=== PATIENT | female | born 1945 | race Caucasian/White ===

== ENCOUNTER 2017-08-09 11:35 | Inpatient (IN) | payer MEDICARE, MEDICAID ==
[~2017-08-09] VITALS: Ht 160 cm; Wt 74.6 kg
[2017-08-09 11:39] VITALS: BP 150/89
[2017-08-09] MEDS ORDERED: HALOPERIDOL 5 MG TABLET PO PRN (12:30)
[2017-08-09] MEDS ORDERED: INFLUENZA VIRUS VACCINE QVS 2017-18 (3YR+)/PF 60 MCG/0.5 ML SYRINGE IM ONE (12:30)
[2017-08-09] MEDS ORDERED: LORazepam 1 MG TABLET PO PRN (12:30)
[2017-08-09] MEDS ORDERED: LORA10TA7 PO (13:18)
[2017-08-09] MEDS ORDERED: SIMV-259 PO (13:18)
[2017-08-09] MEDS ORDERED: ALEN70TA48 PO (13:18)
[2017-08-09] MEDS ORDERED: IBUP-2070 PO (13:18)
[2017-08-09] MEDS ORDERED: MULT-248 PO (13:18)
[2017-08-09] MEDS ORDERED: SITA50 PO (13:18)
[2017-08-09] MEDS ORDERED: TRAM50TA4 PO (13:18)
[2017-08-09] MEDS ORDERED: ALBU8HFA4 IH (13:18)
[2017-08-09] MEDS ORDERED: INSU100V12 SQ (13:24)
[2017-08-09] MEDS ORDERED: INSNOV SQ (13:26)
[2017-08-09 14:11] VITALS: BP 185/78
[2017-08-09 14:13] LABS: GLUCOMETER DEV NAME(LOC) BV3S 2; GLUCOSE,POINT OF CARE 134 MG/DL (70-110)
[2017-08-09] MEDS ORDERED: GLUCAGON,HUMAN RECOMBINANT 1 MG VIAL IM PRN (14:15)
[2017-08-09] MEDS ORDERED: ALBUTEROL SULFATE HFA 90 MCG/PUFF 8 GM INHALER IH PRN (16:00)
[2017-08-09] MEDS ORDERED: IBUPROFEN 400 MG TABLET PO PRN (16:00)
[2017-08-09] MEDS ORDERED: ACETAMINOPHEN 325 MG TABLET PO PRN (16:00)
[2017-08-09] MEDS ORDERED: CloNIDine HCL 0.1 MG TABLET PO PRN (16:00)
[2017-08-09 16:05] VITALS: BP 138/82
[2017-08-09 16:43] LABS: GLUCOMETER DEV NAME(LOC) BV3S 2; GLUCOSE,POINT OF CARE 210 MG/DL (70-110)
[2017-08-09] MEDS: INSULIN DETEMIR 100 UNITS/ML SQ SCH (18:54)
[2017-08-09 20:11] LABS: GLUCOMETER DEV NAME(LOC) BV3S 2; GLUCOSE,POINT OF CARE 240 MG/DL (70-110)
[2017-08-10] MEDS ORDERED: ALENDRONATE SODIUM 70 MG TABLET PO SCH (06:30)
[2017-08-10] MEDS: ZIPRASIDONE HCL 40 MG CAPSULE PO SCH ×2 (06:43→16:35)
[2017-08-10 06:44] LABS: GLUCOMETER DEV NAME(LOC) BV3S 2; GLUCOSE,POINT OF CARE 116 MG/DL (70-110)
[2017-08-10 08:01] VITALS: BP 139/72
[2017-08-10] MEDS: MULTIVITAMINS WITH MINERALS, THERAPEUTIC TABLET PO SCH (08:23)
[2017-08-10] MEDS: LORATADINE 10 MG TABLET PO SCH (08:23)
[2017-08-10 08:27] LABS: HEMOGLOBIN A1C 6.5 % (4.5-6.2)
[2017-08-10] MEDS: SitaGLIPtin PHOSPHATE 50 MG TABLET PO SCH (08:29)
[2017-08-10] MEDS: AmLODIPine BESYLATE 5 MG TABLET PO SCH (08:29)
[2017-08-10] MEDS: SIMVASTATIN 10 MG TABLET PO SCH (08:30)
[2017-08-10 08:32] LABS: BASOPHILS % (AUTO) 0.4 % (0.0-2.0); EOSINOPHILS % (AUTO) 3.4 % (1.0-6.0); HEMATOCRIT 38.1 % (36-46); LYMPHOCYTES # (AUTO) 2.5 K/uL (1.0-4.8); LYMPHOCYTES % (AUTO) 32.9 % (22.0-44.0); MEAN CORPUSCULAR HEMOGLOBIN 31.4 pg (26.0-34.0); MEAN CORPUSCULAR HGB CONC 34.2 G/dL (31.0-37.0); MEAN CORPUSCULAR VOLUME 92 fL (80-100); MONOCYTES # (AUTO) 0.6 K/uL (0.1-1.0); MONOCYTES % (AUTO) 7.9 % (2.0-9.0); NEUTROPHILS # (AUTO) 4.1 K/uL (1.8-7.7); NEUTROPHILS % (AUTO) 55.4 % (40.0-70.0); PLATELET COUNT (AUTO) 227 K/uL (150-450); RED BLOOD CELL COUNT(AUTO) 4.15 MIL/uL (4.00-5.20); RED CELL DISTRIBUTION WIDTH 13.2 % (11.5-14.5)
[2017-08-10 10:05] LABS: ALANINE AMINOTRANSFERASE 29 U/L (12-78); ALBUMIN 3.6 g/dL (3.4-5.0); ALKALINE PHOSPHATASE 87 U/L (46-116); ANION GAP 7 mmol/L (8-16); ASPARTATE AMINOTRANSFERASE 27 U/L (15-37); BILIRUBIN,TOTAL 0.4 mg/dL (0.1-1.0); CALCIUM, TOTAL 8.8 mg/dL (8.8-10.5); CARBON DIOXIDE 28 mmol/L (22-29); CHLORIDE 105 mmol/L (98-107); CHOL/HDL RATIO 4.1 (3.9-5.7); CHOLESTEROL 189 mg/dL (131-200); FREE T4 (FREE THYROXINE) 1.09 ng/dL (0.76-1.46); GLOMERULAR FILTR. RATE CALC > 60 mL/min (>60); GLUCOSE,RANDOM 129 mg/dL (70-110); HDL CHOLESTEROL 46 mg/dL (40-60); LDL CHOL (CALC.) 113 mg/dL (0-130); POTASSIUM 3.6 mmol/L (3.5-5.1); SODIUM SERUM 140 mmol/L (136-145); THYROID STIMULATING HORMONE 2.31 uIU/mL (0.36-3.74); TRIGLYCERIDES 152 mg/dL (15-150); UREA NITROGEN, BLOOD 14 mg/dL (7-18)
[2017-08-10 11:58] LABS: GLUCOMETER DEV NAME(LOC) BV3S 2; GLUCOSE,POINT OF CARE 174 MG/DL (70-110)
[2017-08-10 16:21] VITALS: BP 147/76
[2017-08-10 16:52] LABS: GLUCOMETER DEV NAME(LOC) BV3S 2; GLUCOSE,POINT OF CARE 172 MG/DL (70-110)
[2017-08-10] MEDS ORDERED: ZIPRASIDONE MESYLATE 20 MG/VIAL IM PRN (19:15)
[2017-08-10] MEDS: INSULIN DETEMIR 100 UNITS/ML SQ SCH (20:08)
[2017-08-10] MEDS: INSULIN ASPART 100 UNITS/ML SQ PRN (20:10)
[2017-08-10 20:12] LABS: GLUCOMETER DEV NAME(LOC) BV3S 2; GLUCOSE,POINT OF CARE 223 MG/DL (70-110)
[2017-08-11 06:17] LABS: GLUCOMETER DEV NAME(LOC) BV3S 2; GLUCOSE,POINT OF CARE 152 MG/DL (70-110)
[2017-08-11] MEDS: ZIPRASIDONE HCL 40 MG CAPSULE PO SCH ×2 (06:27→18:36)
[2017-08-11] MEDS: INSULIN ASPART 100 UNITS/ML SQ PRN (06:27)
[2017-08-11 06:53] VITALS: BP 129/68
[2017-08-11] MEDS: SIMVASTATIN 10 MG TABLET PO SCH (08:20)
[2017-08-11] MEDS: MULTIVITAMINS WITH MINERALS, THERAPEUTIC TABLET PO SCH (08:20)
[2017-08-11] MEDS: LORATADINE 10 MG TABLET PO SCH (08:20)
[2017-08-11 08:25] VITALS: BP 151/87
[2017-08-11 08:26] VITALS: BP_SYST 118; BP_SYST 151; BP_DIAS 87; BP_DIAS 92
[2017-08-11] MEDS: AmLODIPine BESYLATE 5 MG TABLET PO SCH (08:33)
[2017-08-11] MEDS: SitaGLIPtin PHOSPHATE 50 MG TABLET PO SCH (08:33)
[2017-08-11 12:27] LABS: GLUCOMETER DEV NAME(LOC) BV3S 2; GLUCOSE,POINT OF CARE 223 MG/DL (70-110)
[2017-08-11 16:08] VITALS: BP 150/72
[2017-08-11 17:32] LABS: GLUCOMETER DEV NAME(LOC) BV3S 2; GLUCOSE,POINT OF CARE 136 MG/DL (70-110)
[2017-08-11] MEDS: INSULIN DETEMIR 100 UNITS/ML SQ SCH (20:43)
[2017-08-11 21:46] VITALS: BP 135/63
[2017-08-11 22:23] LABS: GLUCOMETER DEV NAME(LOC) BV3S 2; GLUCOSE,POINT OF CARE 220 MG/DL (70-110)
[2017-08-12 02:54] VITALS: BP 123/71
[2017-08-12] MEDS: ZIPRASIDONE HCL 40 MG CAPSULE PO SCH ×2 (06:32→16:42)
[2017-08-12 08:02] VITALS: BP 119/61
[2017-08-12 08:27] VITALS: BP 119/61
[2017-08-12] MEDS: SitaGLIPtin PHOSPHATE 50 MG TABLET PO SCH (09:00)
[2017-08-12] MEDS: AmLODIPine BESYLATE 5 MG TABLET PO SCH (09:00)
[2017-08-12] MEDS: SIMVASTATIN 10 MG TABLET PO SCH (09:32)
[2017-08-12] MEDS: LORATADINE 10 MG TABLET PO SCH (09:32)
[2017-08-12] MEDS: MULTIVITAMINS WITH MINERALS, THERAPEUTIC TABLET PO SCH (09:32)
[2017-08-12 16:30] VITALS: BP 150/90
[2017-08-12 17:27] LABS: GLUCOMETER DEV NAME(LOC) BV3N5; GLUCOSE,POINT OF CARE 165 MG/DL (70-110)
[2017-08-12 17:30] VITALS: BP 145/89
[2017-08-12] MEDS ORDERED: CloNIDine HCL 0.1 MG TABLET PO PRN (20:15)
[2017-08-12] MEDS: INSULIN DETEMIR 100 UNITS/ML SQ SCH (21:04)
[2017-08-12 21:07] LABS: GLUCOMETER DEV NAME(LOC) BV3S 2; GLUCOSE,POINT OF CARE 110 MG/DL (70-110)
[2017-08-12 21:07] LABS: GLUCOMETER DEV NAME(LOC) BV3S 2; GLUCOSE,POINT OF CARE 232 MG/DL (70-110)
[2017-08-12 21:07] LABS: GLUCOMETER DEV NAME(LOC) BV3S 2; GLUCOSE,POINT OF CARE 247 MG/DL (70-110)
[2017-08-13] MEDS: ZIPRASIDONE HCL 40 MG CAPSULE PO SCH ×2 (06:54→16:33)
[2017-08-13 07:00] VITALS: BP 143/82
[2017-08-13 07:08] LABS: GLUCOMETER DEV NAME(LOC) BV3S 2; GLUCOSE,POINT OF CARE 130 MG/DL (70-110)
[2017-08-13 08:45] VITALS: BP 151/75
[2017-08-13] MEDS: SitaGLIPtin PHOSPHATE 50 MG TABLET PO SCH (09:00)
[2017-08-13] MEDS: LORATADINE 10 MG TABLET PO SCH (09:11)
[2017-08-13] MEDS: MULTIVITAMINS WITH MINERALS, THERAPEUTIC TABLET PO SCH (09:11)
[2017-08-13] MEDS: SIMVASTATIN 10 MG TABLET PO SCH (09:11)
[2017-08-13] MEDS: AmLODIPine BESYLATE 5 MG TABLET PO SCH (09:17)
[2017-08-13 15:23] LABS: GLUCOMETER DEV NAME(LOC) BV3S 2; GLUCOSE,POINT OF CARE 170 MG/DL (70-110)
[2017-08-13 16:04] VITALS: BP 140/99
[2017-08-13 16:48] LABS: GLUCOMETER DEV NAME(LOC) BV3S 2; GLUCOSE,POINT OF CARE 212 MG/DL (70-110)
[2017-08-13] MEDS: INSULIN DETEMIR 100 UNITS/ML SQ SCH (20:00)
[2017-08-13 21:12] LABS: GLUCOMETER DEV NAME(LOC) BV3S 2; GLUCOSE,POINT OF CARE 219 MG/DL (70-110)
[2017-08-14 00:38] VITALS: BP 141/87
[2017-08-14] MEDS: INSULIN ASPART 100 UNITS/ML SQ PRN ×4 (06:36→21:05)
[2017-08-14] MEDS: ZIPRASIDONE HCL 40 MG CAPSULE PO SCH (06:38)
[2017-08-14 06:52] LABS: GLUCOMETER DEV NAME(LOC) BV3S 2; GLUCOSE,POINT OF CARE 147 MG/DL (70-110)
[2017-08-14 08:36] VITALS: BP 129/61
[2017-08-14] MEDS: SIMVASTATIN 10 MG TABLET PO SCH (08:53)
[2017-08-14] MEDS: MULTIVITAMINS WITH MINERALS, THERAPEUTIC TABLET PO SCH (08:53)
[2017-08-14] MEDS: LORATADINE 10 MG TABLET PO SCH (08:53)
[2017-08-14] MEDS: AmLODIPine BESYLATE 5 MG TABLET PO SCH (08:53)
[2017-08-14] MEDS: SitaGLIPtin PHOSPHATE 50 MG TABLET PO SCH (09:00)
[2017-08-14 12:12] LABS: GLUCOMETER DEV NAME(LOC) BV3S 2; GLUCOSE,POINT OF CARE 218 MG/DL (70-110)
[2017-08-14 16:12] LABS: GLUCOMETER DEV NAME(LOC) BV3S 2; GLUCOSE,POINT OF CARE 141 MG/DL (70-110)
[2017-08-14] MEDS: ZIPRASIDONE HCL 60 MG CAPSULE PO SCH (16:51)
[2017-08-14 17:58] VITALS: BP 136/85
[2017-08-14] MEDS: INSULIN DETEMIR 100 UNITS/ML SQ SCH (19:36)
[2017-08-15 05:39] LABS: GLUCOMETER DEV NAME(LOC) BV3S 2; GLUCOSE,POINT OF CARE 177 MG/DL (70-110)
[2017-08-15 06:11] VITALS: BP 113/67
[2017-08-15] MEDS: ZIPRASIDONE HCL 60 MG CAPSULE PO SCH ×2 (06:35→16:43)
[2017-08-15 07:22] LABS: GLUCOMETER DEV NAME(LOC) BV3S 2; GLUCOSE,POINT OF CARE 100 MG/DL (70-110)
[2017-08-15 08:19] VITALS: BP 100/58
[2017-08-15] MEDS: MULTIVITAMINS WITH MINERALS, THERAPEUTIC TABLET PO SCH (09:59)
[2017-08-15] MEDS: SitaGLIPtin PHOSPHATE 50 MG TABLET PO SCH (09:59)
[2017-08-15] MEDS: AmLODIPine BESYLATE 5 MG TABLET PO SCH (10:00)
[2017-08-15] MEDS: SIMVASTATIN 10 MG TABLET PO SCH (10:01)
[2017-08-15] MEDS: LORATADINE 10 MG TABLET PO SCH (10:01)
[2017-08-15] MEDS: INSULIN ASPART 100 UNITS/ML SQ PRN ×2 (11:41→18:12)
[2017-08-15 11:43] LABS: GLUCOMETER DEV NAME(LOC) BV3S 2; GLUCOSE,POINT OF CARE 142 MG/DL (70-110)
[2017-08-15 16:28] VITALS: BP 129/84
[2017-08-15 17:23] LABS: GLUCOMETER DEV NAME(LOC) BV3S 2; GLUCOSE,POINT OF CARE 186 MG/DL (70-110)
[2017-08-15] MEDS: INSULIN DETEMIR 100 UNITS/ML SQ SCH (20:46)
[2017-08-15 21:27] LABS: GLUCOMETER DEV NAME(LOC) BV3S 2; GLUCOSE,POINT OF CARE 222 MG/DL (70-110)
[2017-08-16] MEDS: ZIPRASIDONE HCL 60 MG CAPSULE PO SCH ×2 (06:20→16:50)
[2017-08-16 06:28] LABS: GLUCOMETER DEV NAME(LOC) BV3S 2; GLUCOSE,POINT OF CARE 137 MG/DL (70-110)
[2017-08-16 06:32] VITALS: BP 126/68
[2017-08-16] MEDS: SIMVASTATIN 10 MG TABLET PO SCH (08:12)
[2017-08-16] MEDS: LORATADINE 10 MG TABLET PO SCH (08:12)
[2017-08-16] MEDS: AmLODIPine BESYLATE 5 MG TABLET PO SCH (08:12)
[2017-08-16] MEDS: MULTIVITAMINS WITH MINERALS, THERAPEUTIC TABLET PO SCH (08:12)
[2017-08-16 08:33] VITALS: BP 104/54
[2017-08-16] MEDS: SitaGLIPtin PHOSPHATE 50 MG TABLET PO SCH (08:44)
[2017-08-16 11:52] LABS: GLUCOMETER DEV NAME(LOC) BV3S 2; GLUCOSE,POINT OF CARE 146 MG/DL (70-110)
[2017-08-16 16:22] VITALS: BP 138/68
[2017-08-16 17:17] LABS: GLUCOMETER DEV NAME(LOC) BV3S 2; GLUCOSE,POINT OF CARE 227 MG/DL (70-110)
[2017-08-16] MEDS: INSULIN DETEMIR 100 UNITS/ML SQ SCH (20:50)
[2017-08-16 22:22] LABS: GLUCOMETER DEV NAME(LOC) BV3S 2; GLUCOSE,POINT OF CARE 207 MG/DL (70-110)
[2017-08-17] MEDS: ZOLPIDEM TARTRATE 10 MG TABLET PO PRN ×2 (00:15→20:28)
[2017-08-17] MEDS: ZIPRASIDONE HCL 80 MG CAPSULE PO SCH ×2 (06:20→16:13)
[2017-08-17 06:32] VITALS: BP 128/78
[2017-08-17 06:38] LABS: GLUCOMETER DEV NAME(LOC) BV3S 2; GLUCOSE,POINT OF CARE 108 MG/DL (70-110)
[2017-08-17 08:14] VITALS: BP 126/72
[2017-08-17] MEDS: SitaGLIPtin PHOSPHATE 50 MG TABLET PO SCH (09:00)
[2017-08-17] MEDS: AmLODIPine BESYLATE 5 MG TABLET PO SCH (09:36)
[2017-08-17] MEDS: MULTIVITAMINS WITH MINERALS, THERAPEUTIC TABLET PO SCH (09:37)
[2017-08-17] MEDS: LORATADINE 10 MG TABLET PO SCH (09:37)
[2017-08-17] MEDS: SIMVASTATIN 10 MG TABLET PO SCH (09:38)
[2017-08-17 11:23] LABS: GLUCOMETER DEV NAME(LOC) BV3S 2; GLUCOSE,POINT OF CARE 254 MG/DL (70-110)
[2017-08-17 16:01] VITALS: BP 140/72
[2017-08-17 16:47] LABS: GLUCOMETER DEV NAME(LOC) BV3S 2; GLUCOSE,POINT OF CARE 153 MG/DL (70-110)
[2017-08-17] MEDS: INSULIN ASPART 100 UNITS/ML SQ PRN ×2 (17:08→20:07)
[2017-08-17] MEDS: INSULIN DETEMIR 100 UNITS/ML SQ SCH (20:00)
[2017-08-17 20:02] LABS: GLUCOMETER DEV NAME(LOC) BV3S 2; GLUCOSE,POINT OF CARE 198 MG/DL (70-110)
[2017-08-18 05:17] VITALS: BP 127/75
[2017-08-18] MEDS: ZIPRASIDONE HCL 80 MG CAPSULE PO SCH (06:22)
[2017-08-18 06:23] LABS: GLUCOMETER DEV NAME(LOC) BV3S 2; GLUCOSE,POINT OF CARE 101 MG/DL (70-110)
[2017-08-18 08:46] VITALS: BP 106/61
[2017-08-18] MEDS: MULTIVITAMINS WITH MINERALS, THERAPEUTIC TABLET PO SCH (08:51)
[2017-08-18] MEDS: SitaGLIPtin PHOSPHATE 50 MG TABLET PO SCH ×2 (08:53→09:00)
[2017-08-18] MEDS: LORATADINE 10 MG TABLET PO SCH (08:53)
[2017-08-18] MEDS: AmLODIPine BESYLATE 5 MG TABLET PO SCH (08:53)
[2017-08-18] MEDS: SIMVASTATIN 10 MG TABLET PO SCH (08:53)
[2017-08-18 11:38] LABS: GLUCOMETER DEV NAME(LOC) BV3S 2; GLUCOSE,POINT OF CARE 250 MG/DL (70-110)
[2017-08-18] MEDS ORDERED: AMLO-511 PO (11:55)
[2017-08-18] MEDS ORDERED: ZIPR80CA2 PO ×3 (12:00→12:02)
== END 2017-08-18 14:03 | disposition home or self-care (01) | DRG 750 ==
LOC: B3A 12:29
PROVIDERS: ADMIT Psychiatry & Neurology Psychiatry; ATTEND Psychiatry & Neurology Psychiatry
PROC: 3E0234Z Introduction of Serum, Toxoid and Vaccine into Muscle, Percutaneous Approach (ICD-10-PCS; principal; 2017-08-09)
DX: F20.0 Paranoid schizophrenia (principal); E11.9 Type 2 diabetes mellitus without complications; M41.9 Scoliosis, unspecified; E78.5 Hyperlipidemia, unspecified; F10.10 Alcohol abuse, uncomplicated; G89.29 Other chronic pain; I10 Essential (primary) hypertension; J45.909 Unspecified asthma, uncomplicated; M81.0 Age-related osteoporosis without current pathological fracture; M54.9 Dorsalgia, unspecified; R25.1 Tremor, unspecified; Z23 Encounter for immunization; Z91.19 Patient's noncompliance with other medical treatment and regimen; Z91.81 History of falling; Z88.0 Allergy status to penicillin
CPT/HCPCS: 82962; 83036; 84439; 84443; 90471; J3486